=== PATIENT | male | born 1945 | race Caucasian/White ===

== ENCOUNTER 2016-11-04 06:30 | Day surgery (SDC) | payer MEDICARE, OTHER ==
[~2016-11-04 06:30] MED LIST: Sodium Chloride 0.9% 1,000 ML IV SCH
[2016-11-04] MEDS ORDERED: Lactated Ringers 1,000 ML IV SCH (06:45)
[2016-11-04] MEDS ORDERED: Midazolam 1 MG/ML 2 ML SDV ONE (07:24)
[2016-11-04] MEDS ORDERED: fentaNYL 100 MCG/2 ML SDV ONE (07:24)
[2016-11-04] MEDS ORDERED: Propofol 200 MG/20 ML SDV ONE (07:24)
--- NOTE | 2016-11-04 09:34 | OR ---
DATE OF PROCEDURE: 11/04/2016 PREOPERATIVE DIAGNOSIS: Diarrhea. POSTOPERATIVE DIAGNOSIS: Diverticulosis; diarrhea, etiology unknown. PROCEDURE PERFORMED: Colonoscopy to the cecum with random colonic biopsies. ANESTHESIA: IV anesthesia with monitored anesthesia care. INDICATIONS: This 70-year-old white male is referred for a colonoscopy because of diarrhea which is chronic. He thinks his last colonoscopic exam was performed about 8 to 10 years ago. I counseled for a colonoscopy with possible biopsy and/or polypectomy including risks and alternatives, and he gave his informed consent to proceed. DESCRIPTION OF PROCEDURE: The patient was placed in the left lateral decubitus position. IV anesthesia was administered by the Anesthesia Service. Time-out was held. A rectal exam was performed, which was unremarkable. The flexible video Olympus colonoscope was introduced through his anus, up his rectum, and out his colon all way to the cecum. En route, we saw a few scattered left-sided diverticula. Once the cecum was reached, the scope was slowly withdrawn examining the mucosa throughout. No mucosal abnormalities were noted. We did obtain random colonic biopsies throughout the entire colon because of the diarrhea. The scope was retroflexed in the rectum, with the distal rectum appearing unremarkable. The scope was straightened and removed. He tolerated the procedure well. Brian Contreras MD /[id number] [facility]
[2016-11-04 09:42] VITALS: BP 130/79
== END 2016-11-04 10:00 | disposition home or self-care (01) ==
LOC: JP.SDS 06:30
PROVIDERS: ATTEND Surgery
DX: K57.30 Diverticulosis of large intestine without perforation or abscess without bleeding (principal); K52.9 Noninfective gastroenteritis and colitis, unspecified
CPT/HCPCS: 45380; 88305; J2250; J2704; J3010; J7120

== ENCOUNTER 2017-01-17 17:30 | Emergency (ER) | payer MEDICARE, OTHER ==
[2017-01-17 17:45] VITALS: BP 146/92
[2017-01-17] MEDS ORDERED: Bacitracin Oint 1 GM U/D Packet TOP ONE (18:55)
--- NOTE | 2017-01-17 19:07 | EDM.PDOC ---
ED HPI GENERAL MEDICAL PROBLEM - General Chief Complaint: Laceration Stated Complaint: CUT FINGER Time Seen by Provider: 01/17/17 17:45 Source of Information: Reports: Patient History Limitations: Reports: No Limitations - History of Present Illness INITIAL COMMENTS - FREE TEXT/NARRATIVE: pt arrived with a circular laceration on the tip of the 4th finger. he cut this on glass at his home. Onset: Today Duration: Hour(s): Location: Reports: Upper Extremity, Right Associated Symptoms: Reports: No Other Symptoms Right 4-Ring finger Pain Score (Numeric/FACES): 1 - Related Data Allergies Allergy/AdvReac Type Severity Reaction Status Date / Time No Known Allergies Allergy Verified 01/17/17 17:47 Home Meds: Home Meds Glucosamine/D3/Boswellia Yvonne [Glucosamine Complex Tablet] 200 mg PO BID [History] Multivitamin [Multivitamins] 1 tab PO DAILY 10/27/14 [History] Terazosin [Hytrin] 4 mg PO BEDTIME 10/27/14 [History] Latanoprost [Latanoprost] 1 drop EYEBOTH DAILY 10/29/16 [History] Turmeric/Turmeric Root Extract [Turmeric 450-50 mg Capsule] 1 each PO DAILY [History] Timolol [Betimol] 1 drop OP DAILY 01/17/17 [History] Past Medical History HEENT History: Reports: Impaired Vision Genitourinary History: Reports: Other (See Below) Other Genitourinary History: bladder CA 1994 Musculoskeletal History: Reports: Arthritis Oncologic (Cancer) History: Reports: Bladder Other Oncologic History: bladder CA - Infectious Disease History Infectious Disease History: Reports: Chicken Pox - Past Surgical History HEENT Surgical History: Reports: Other (See Below) Other HEENT Surgeries/Procedures: repaired left ear hole with earlobe tissue GI Surgical History: Reports: Hernia, Inguinal Other GI Surgeries/Procedures: 10/28/14 Left hernia pain Male Surgical History: Reports: Other (See Below) Other Male Surgeries/Procedures: ?resected tumor from bladder Social & Family History - Tobacco Use Smoking Status *Q: Never Smoker Second Hand Smoke Exposure: No - Caffeine Use Caffeine Use: Reports: Coffee - Alcohol Use Days Per Week of Alcohol Use: 2 Number of Drinks Per Day: 1 Total Drinks Per Week: 2 - Recreational Drug Use Recreational Drug Use: No ED ROS GENERAL - Review of Systems Review Of Systems: See Below Constitutional: Reports: No Symptoms HEENT: Reports: No Symptoms Respiratory: Reports: No Symptoms Cardiovascular: Reports: No Symptoms Endocrine: Reports: No Symptoms GI/Abdominal: Reports: No Symptoms : Reports: No Symptoms ED EXAM, SKIN/RASH Exam: See Below Text/Narrative:: pt has a circular cut on the tip of the 4th finger. This is 1/2 inch. Exam Limited By: No Limitations General Appearance: Alert, Anxious Ears: Normal TMs Nose: Normal Inspection Throat/Mouth: Normal Inspection Head: Atraumatic Neck: Normal Inspection Extremities: Other (pt has a circular laceration 1/2 inch in length. ) Neurological: Alert, Oriented, Normal Cognition Psychiatric: Normal Affect Course - Vital Signs Last Recorded V/S: Last Vital Signs Temp 36.0 C 01/17/17 17:45 Pulse 76 01/17/17 17:45 Resp 18 01/17/17 17:45 BP 146/92 H 01/17/17 17:45 Pulse Ox 96 01/17/17 17:45 - Orders/Labs/Meds Meds: Medications Discontinued Medications Generic Name Dose Route Start Last Admin Trade Name Freq PRN Reason Stop Dose Admin Bacitracin 1 dose 01/17/17 18:55 Bacitracin Oint 1 Gm TOP 01/17/17 18:56 ONETIME ONE Lidocaine HCl 5 ml 01/17/17 18:54 Xylocaine-Mpf 1% INJECT 01/17/17 18:55 ONETIME ONE - Re-Assessments/Exams Free Text/Narrative Re-Assessment/Exam: 01/17/17 19:14 area was cleansed and infiltrated with lidocaine.. The wound was closed with 6 -0 prolene. It was dressed with bacatracin. Departure - Departure Time of Disposition: 19:08 Disposition: Home, Self-Care 01 Condition: Fair Clinical Impression: Laceration - Discharge Information Referrals: Ashok Cooper MD [Primary Care Provider] - Forms: ED Department Discharge Care Plan Goals: keep dry, no further ointments, keep covered sr in 7-8 days.
== END 2017-01-17 19:34 | disposition home or self-care (01) ==
LOC: JP.ED 17:30
DX: S61.214A Laceration without foreign body of right ring finger without damage to nail, initial encounter (principal); Z79.899 Other long term (current) drug therapy; W25.XXXA Contact with sharp glass, initial encounter; Y92.009 Unspecified place in unspecified non-institutional (private) residence as the place of occurrence of the external cause
CPT/HCPCS: 12001; 99283-25

== ENCOUNTER 2019-03-02 20:34 | Emergency (ER) | payer MEDICARE, OTHER ==
[2019-03-02] MEDS ORDERED: diphenhydrAMINE 50 MG/ML SDV IVPUSH ONE (20:39)
[2019-03-02] MEDS ORDERED: Ketorolac 30 MG/ML SDV IVPUSH ONE (20:39)
[2019-03-02] MEDS ORDERED: Prochlorperazine 10 MG/2 ML SDV IVPUSH ONE (20:39)
[2019-03-02 20:43] VITALS: BP 140/79; PULSE 75
[2019-03-02] MEDS ORDERED: Acetaminophen/oxyCODONE 325-5 MG Tab PO ONE (20:59)
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
== END 2019-03-02 22:10 | disposition home or self-care (01) ==
LOC: JP.ED 20:34
DX: S20.212A Contusion of left front wall of thorax, initial encounter (principal); G30.0 Alzheimer's disease with early onset; F02.80 Dementia in other diseases classified elsewhere, unspecified severity, without behavioral disturbance, psychotic disturbance, mood disturbance, and anxiety; V43.52XA Car driver injured in collision with other type car in traffic accident, initial encounter; Y92.410 Unspecified street and highway as the place of occurrence of the external cause
CPT/HCPCS: 71046; 96374; 99285-25; A9270-GY

== ENCOUNTER 2019-05-19 18:31 | Emergency (ER) | payer MEDICARE, OTHER ==
--- NOTE | 2019-05-19 19:17 | EDM.PDOC ---
ED HPI GENERAL MEDICAL PROBLEM - General Chief Complaint: Gastrointestinal Problem Stated Complaint: WEAK,STOMACH PAINS Time Seen by Provider: 05/19/19 19:17 Source of Information: Reports: Patient History Limitations: Reports: No Limitations - History of Present Illness INITIAL COMMENTS - FREE TEXT/NARRATIVE: 73 years old male patient presented to the ER with a chief complaint of epigastric pain, intermittent has been going on for 6 weeks. Intermittent nausea and vomiting. His hospital and told him he needed to be checked tonight. Denies any fever. Has diarrhea for 6 weeks. Denies any urinary changes. Denies any urinary symptom. Denies any chest pain shortness breath. Nothing he can think of that extirpate his pain or alleviated. Pain, nausea and vomiting currently resolved. - Related Data Allergies Allergy/AdvReac Type Severity Reaction Status Date / Time No Known Allergies Allergy Verified 02/16/18 18:39 Home Meds: Home Meds Multivitamin [Multivitamins] 1 tab PO DAILY 10/27/14 [History] Terazosin [Hytrin] 4 mg PO BEDTIME 10/27/14 [History] Latanoprost 1 drop EYEBOTH DAILY 10/29/16 [History] Turmeric/Turmeric Root Extract [Turmeric 450-50 mg Capsule] 1 each PO DAILY [History] Timolol [Betimol] 1 drop OP DAILY 01/17/17 [History] Past Medical History HEENT History: Reports: Impaired Vision Gastrointestinal History: Reports: GERD, GI Bleed Genitourinary History: Reports: Other (See Below) Other Genitourinary History: bladder CA 1994 Musculoskeletal History: Reports: Arthritis Oncologic (Cancer) History: Reports: Bladder Other Oncologic History: bladder CA - Infectious Disease History Infectious Disease History: Reports: Chicken Pox - Past Surgical History HEENT Surgical History: Reports: Other (See Below) Other HEENT Surgeries/Procedures: repaired left ear hole with earlobe tissue GI Surgical History: Reports: Hernia, Inguinal Other GI Surgeries/Procedures: 10/28/14 Left hernia pain. sheduled for hernia repair 03/23/19 in [facility] Male Surgical History: Reports: Other (See Below) Other Male Surgeries/Procedures: ?resected tumor from bladder Social & Family History - Caffeine Use Caffeine Use: Reports: Coffee ED ROS GENERAL - Review of Systems Review Of Systems: Comprehensive ROS is negative, except as noted in HPI. ED EXAM, GI/ABD - Physical Exam Exam: See Below Exam Limited By: No Limitations General Appearance: Alert, WD/WN, No Apparent Distress Eyes: Bilateral: Normal Appearance, EOMI Nose: Normal Inspection, Normal Mucosa, No Blood Throat/Mouth: Normal Inspection, Normal Lips, Normal Teeth, Normal Gums, Normal Oropharynx, Normal Voice, No Airway Compromise Head: Atraumatic, Normocephalic Neck: Normal Inspection, Supple, Non-Tender, Full Range of Motion Respiratory/Chest: No Respiratory Distress, Lungs Clear, Normal Breath Sounds, No Accessory Muscle Use, Chest Non-Tender Cardiovascular: Normal Peripheral Pulses, Regular Rate, Rhythm, No Edema, No Gallop, No JVD, No Murmur, No Rub GI/Abdominal Exam: Normal Bowel Sounds, Soft, Non-Tender, No Organomegaly, No Distention, No Abnormal Bruit, No Mass, Pelvis Stable Extremities: Normal Inspection, Normal Range of Motion, Non-Tender, Normal Capillary Refill, No Pedal Edema Neurological: Alert, Oriented, CN II-XII Intact, Normal Cognition, Normal Gait, Normal Reflexes, No Motor/Sensory Deficits Skin Exam: Warm, Dry, Intact, Normal Color, No Rash Course - Vital Signs Last Recorded V/S: Last Vital Signs Temp 36.2 C 05/19/19 19:38 Pulse 61 05/19/19 20:43 Resp 16 05/19/19 19:38 BP 149/89 H 05/19/19 20:43 Pulse Ox 96 05/19/19 19:38 - Orders/Labs/Meds Orders: Active Orders 24 hr Category Date Time Status Iopamidol [Isovue-300 (61%)] Med 05/19/19 20:30 Active 100 ml IV . DIRECTED Sodium Chloride 0.9% [Normal Saline] 80 ml Med 05/19/19 20:30 Active IV ASDIRECTED Sodium Chloride 0.9% [Saline Flush] Med 05/19/19 20:30 Active 10 ml FLUSH ASDIRECTED PRN Medication Orders Sodium Chloride (Normal Saline) 80 mls @ 3 mls/sec IV ASDIRECTED KOBY Last Admin: 05/19/19 21:10 Dose: 3 mls/sec Iopamidol (Isovue-300 (61%)) 100 ml IV . DIRECTED KOBY Last Admin: 05/19/19 21:10 Dose: 100 ml Sodium Chloride (Saline Flush) 10 ml FLUSH ASDIRECTED PRN PRN Reason: Keep Vein Open Last Admin: 05/19/19 21:10 Dose: 10 ml Labs: Laboratory Tests 05/19/19 05/19/19 05/19/19 Range/Units 19:26 19:26 19:26 WBC 5.9 (4.5-11.0) K/uL RBC 4.74 (4.30-5.90) M/uL Hgb 14.7 (12.0-15.0) g/dL Hct 44.4 (40.0-54.0) % MCV 94 (80-98) fL MCH 31 (27-31) pg MCHC 33 (32-36) % Plt Count 177 (150-400) K/uL Neut % (Auto) 59 (36-66) % Lymph % (Auto) 30 (24-44) % Coleman % (Auto) 9 H (2-6) % Eos % (Auto) 2 (2-4) % Baso % (Auto) 1 (0-1) % PT 11.0 (9.5-12.0) sec INR 1.02 (0.80-1.20) Sodium 137 L (140-148) mmol/L Potassium 3.9 (3.6-5.2) mmol/L Chloride 101 (100-108) mmol/L Carbon Dioxide 28 (21-32) mmol/L Anion Gap 11.9 (5.0-14.0) mmol/L BUN 20 H (7-18) mg/dL Creatinine 1.1 (0.8-1.3) mg/dL Est Cr Clr Drug Dosing 57.08 mL/min Estimated GFR (MDRD) > 60 (>60) Glucose 101 (74-106) mg/dL Lactic Acid (0.4-2.0) mmol/L Calcium 8.2 L (8.5-10.1) mg/dL Total Bilirubin 0.3 (0.2-1.0) mg/dL AST 21 (15-37) U/L ALT 27 (12-78) U/L Alkaline Phosphatase 119 H (46-116) U/L Total Protein 7.0 (6.4-8.2) g/dL Albumin 3.5 (3.4-5.0) g/dL Globulin 3.5 (2.3-3.5) g/dL Albumin/Globulin Ratio 1.0 L (1.2-2.2) Lipase 120 (73-393) U/L Urine Color (YELLOW) Urine Appearance (CLEAR) Urine pH (5.0-8.0) Ur Specific [place] (1.008-1.030) Urine Protein (NEGATIVE) mg/dL Urine Glucose (UA) (NEGATIVE) mg/dL Urine Ketones (NEGATIVE) mg/dL Urine Occult Blood (NEGATIVE) Urine Nitrite (NEGATIVE) Urine Bilirubin (NEGATIVE) Urine Urobilinogen (0.2-1.0) EU/dL Ur Leukocyte Esterase (NEGATIVE) Urine RBC (0-5) Urine WBC (0-5) Ur Epithelial Cells Amorphous Sediment Urine Bacteria Urine Mucus 05/19/19 05/19/19 Range/Units 19:26 19:50 WBC (4.5-11.0) K/uL RBC (4.30-5.90) M/uL Hgb (12.0-15.0) g/dL Hct (40.0-54.0) % MCV (80-98) fL MCH (27-31) pg MCHC (32-36) % Plt Count (150-400) K/uL Neut % (Auto) (36-66) % Lymph % (Auto) (24-44) % Coleman % (Auto) (2-6) % Eos % (Auto) (2-4) % Baso % (Auto) (0-1) % PT (9.5-12.0) sec INR (0.80-1.20) Sodium (140-148) mmol/L Potassium (3.6-5.2) mmol/L Chloride (100-108) mmol/L Carbon Dioxide (21-32) mmol/L Anion Gap (5.0-14.0) mmol/L BUN (7-18) mg/dL Creatinine (0.8-1.3) mg/dL Est Cr Clr Drug Dosing mL/min Estimated GFR (MDRD) (>60) Glucose (74-106) mg/dL Lactic Acid 1.3 (0.4-2.0) mmol/L Calcium (8.5-10.1) mg/dL Total Bilirubin (0.2-1.0) mg/dL AST (15-37) U/L ALT (12-78) U/L Alkaline Phosphatase (46-116) U/L Total Protein (6.4-8.2) g/dL Albumin (3.4-5.0) g/dL Globulin (2.3-3.5) g/dL Albumin/Globulin Ratio (1.2-2.2) Lipase (73-393) U/L Urine Color Yellow (YELLOW) Urine Appearance Clear (CLEAR) Urine pH 6.0 (5.0-8.0) Ur Specific [place] 1.025 (1.008-1.030) Urine Protein Negative (NEGATIVE) mg/dL Urine Glucose (UA) Negative (NEGATIVE) mg/dL Urine Ketones Negative (NEGATIVE) mg/dL Urine Occult Blood Negative (NEGATIVE) Urine Nitrite Negative (NEGATIVE) Urine Bilirubin Negative (NEGATIVE) Urine Urobilinogen 0.2 (0.2-1.0) EU/dL Ur Leukocyte Esterase Negative (NEGATIVE) Urine RBC Not seen (0-5) Urine WBC 0-5 (0-5) Ur Epithelial Cells Not seen Amorphous Sediment Few Urine Bacteria Not seen Urine Mucus Not seen Meds: Medications Generic Name Dose Route Start Last Admin Trade Name Freq PRN Reason Stop Dose Admin Sodium Chloride 80 mls @ 3 mls/sec 05/19/19 20:30 05/19/19 21:10 Normal Saline IV 3 mls/sec ASDIRECTED KOBY Administration Iopamidol 100 ml 05/19/19 20:30 05/19/19 21:10 Isovue-300 (61%) IV 100 ml . DIRECTED KOBY Administration Sodium Chloride 10 ml 05/19/19 20:30 05/19/19 21:10 Saline Flush FLUSH 10 ml ASDIRECTED PRN Administration Keep Vein Open - Re-Assessments/Exams Free Text/Narrative Re-Assessment/Exam: 05/19/19 19:34 Patient was seen and examined shortly after arrival. Stable. Lab reviewed. No significant acute abnormalities. 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 no change it since 2017. Advised to review this was his primary doctor or general surgeon for further evaluation and management. Again symptom completely resolved. Unclear etiology of his symptom. Possible indigestion. Advised to rest, hydration, close follow-up with PCP. Review CT results. Take a stool sample to the clinic. Come back for any concern or any worsening symptom. Patient and his agrees with the plan. Stable for discharge. 05/19/19 21:49 Departure - Departure Time of Disposition: 21:51 Disposition: Home, Self-Care 01 Condition: Good Clinical Impression: Abdominal pain, Diarrhea - Discharge Information *PRESCRIPTION DRUG MONITORING PROGRAM REVIEWED*: Not Applicable *COPY OF PRESCRIPTION DRUG MONITORING REPORT IN PATIENT YOANDY: Not Applicable Instructions: Abdominal Pain, Adult Referrals: PCP,None [Primary Care Provider] - Forms: ED Department Discharge Additional Instructions: Rest and stay well-hydrated Take stool sample to the clinic for testing Review CT results with your primary doctor for further evaluation and management of left ongoing canal findings Close follow up with PCP within one week Come back for any concern or any worsening symptom Sepsis Event Note - Focused Exam Vital Signs: Vital Signs Temp Pulse Resp BP Pulse Ox 05/19/19 20:43 61 149/89 H 05/19/19 19:38 36.2 C 68 16 142/94 H 96 05/19/19 19:11 36.2 C 68 16 142/94 H 96 Date Exam was Performed: 05/19/19 Time Exam was Performed: 21:49 - My Orders Last 24 Hours: My Active Orders 05/19/19 20:30 Iopamidol [Isovue-300 (61%)] 100 ml IV . DIRECTED Sodium Chloride 0.9% [Normal Saline] 80 ml IV ASDIRECTED Sodium Chloride 0.9% [Saline Flush] 10 ml FLUSH ASDIRECTED PRN - Assessment/Plan Last 24 Hours: My Active Orders 05/19/19 20:30 Iopamidol [Isovue-300 (61%)] 100 ml IV . DIRECTED Sodium Chloride 0.9% [Normal Saline] 80 ml IV ASDIRECTED Sodium Chloride 0.9% [Saline Flush] 10 ml FLUSH ASDIRECTED PRN Plan: Rest and stay well-hydrated Take stool sample to the clinic for testing Review CT results with your primary doctor for further evaluation and management of left ongoing canal findings Close follow up with PCP within one week Come back for any concern or any worsening symptom
[2019-05-19] MEDS ORDERED: Sodium Chloride 0.9% 10 ML Syringe FLUSH PRN (20:30)
[2019-05-19] MEDS ORDERED: Sodium Chloride 0.9% 80 ML IV SCH (20:30)
[2019-05-19] MEDS ORDERED: Iopamidol 612 MG/ML 100 ML Bottle IV SCH (20:30)
[2019-05-19 20:44] VITALS: BP 149/89; PULSE 61
--- NOTE | 2019-05-19 21:45 | CRLCT ---
Indication: Abdominal pain Technique: Contrast enhanced axial CT imaging through the abdomen and pelvis. 100 mL Isovue-300 contrast agent was administered intravenously. Sagittal and coronal reconstructions are provided. Comparison: CT abdomen pelvis with contrast 06/19/2016 Findings: There is no significant abnormality of the liver, gallbladder, spleen, pancreas, adrenal glands, and kidneys. The portal vein is patent. There is normal caliber of the abdominal aorta. There is no abdominal lymphadenopathy. The stomach and duodenum are unremarkable. There are no abnormally dilated small bowel loops. The appendix is noninflamed. There is no colonic wall thickening. No inflammatory changes are demonstrated in the mesentery. A 2.7 oval soft tissue focus is again demonstrated in the proximal left inguinal canal, unchanged since 2017. There is mild prostatomegaly. Degenerative changes are noted in the lumbar spine. The included lung bases are clear. Impression: 1. No acute process demonstrated in the abdomen and pelvis. 2. Stable appearance of a small oval soft tissue focus in the proximal inguinal canal, possibly representing an undescended testis. Please note that all CT scans at this facility use dose modulation, iterative reconstruction, and/or weight-based dosing when appropriate to reduce radiation dose to as low as reasonably achievable. Dictated by Mango Ulloa MD @ May 19 2019 9:43PM Signed by Dr. Mango Ulloa @ May 19 2019 9:43PM
== END 2019-05-19 22:05 | disposition home or self-care (01) ==
LOC: JP.ED 18:31
DX: R10.13 Epigastric pain (principal); R19.7 Diarrhea, unspecified; Z79.899 Other long term (current) drug therapy
CPT/HCPCS: 36415; 74177; 80053; 81001; 83605; 83690; 85025; 85610; 99283; 99284-25; J7050; Q9967

== ENCOUNTER 2019-05-28 14:11 | Emergency (ER) | payer MEDICARE, OTHER ==
[2019-05-28] MEDS ORDERED: Ondansetron 4 MG Tab.DIS PO ONE (14:28)
[2019-05-28] MEDS ORDERED: Lactated Ringers 1,000 ML IV ONE (14:28)
--- NOTE | 2019-05-28 14:41 | EDM.PDOC ---
ED HPI GENERAL MEDICAL PROBLEM - General Chief Complaint: Abdominal Pain Stated Complaint: WEAK VOMITING Time Seen by Provider: 05/28/19 14:25 Source of Information: Reports: Patient, Old Records History Limitations: Reports: No Limitations - History of Present Illness INITIAL COMMENTS - FREE TEXT/NARRATIVE: 73 yo male arrives via EMS from a local restaurant after he developed nausea/ vomiting. No recent diarrhea. No abdominal pain. He says that lately whenever he eats/drinks anything he vomits. He normally gets his care at [facility] and is not able to tell me what they have done or found in regards to this problem that has been ongoing with waxing and waning for a few months due to his mild dementia. No blood in his emesis. Had a hernia repair not too long ago. Was here in the ER 9 days ago for something similar to today's events and a CT scan of his abd/pelvis with IV contrast and labs were normal Within the past year was tx'd with omeprazole for a stomach problem, is not on this currently. Onset: Today (after eating lunch at a local establishment. ) Onset Date: 05/28/19 Duration: Minutes:, Waxing/Waning Location: Reports: Abdomen Quality: Reports: Other (no pain today.) Severity: Moderate Improves with: Reports: None Worsens with: Reports: Other (eating or drinking) Context: Reports: Other (see HPI) Associated Symptoms: Reports: Nausea/Vomiting. Denies: Fever/Chills, Shortness of Breath Treatments FL[employer] CLE[employer]ER: Reports: Other (see below) (none) - Related Data Allergies Allergy/AdvReac Type Severity Reaction Status Date / Time No Known Allergies Allergy Verified 05/28/19 14:17 Home Meds: Home Meds Multivitamin [Multivitamins] 1 tab PO DAILY 10/27/14 [History] Terazosin [Hytrin] 4 mg PO BEDTIME 10/27/14 [History] Latanoprost 1 drop EYEBOTH DAILY 10/29/16 [History] Turmeric/Turmeric Root Extract [Turmeric 450-50 mg Capsule] 1 each PO DAILY [History] Timolol [Betimol] 1 drop OP DAILY 01/17/17 [History] Famotidine [Acid Controller] 20 mg PO BEDTIME #30 tablet 05/28/19 [Rx] Metoclopramide HCl 10 mg PO QID #30 tablet 05/28/19 [Rx] Past Medical History HEENT History: Reports: Impaired Vision Gastrointestinal History: Reports: GERD, GI Bleed Genitourinary History: Reports: Other (See Below) Other Genitourinary History: bladder CA 1994 Musculoskeletal History: Reports: Arthritis Neurological History: Reports: Headaches, Chronic Oncologic (Cancer) History: Reports: Bladder Other Oncologic History: bladder CA - Infectious Disease History Infectious Disease History: Reports: Chicken Pox - Past Surgical History HEENT Surgical History: Reports: Other (See Below) Other HEENT Surgeries/Procedures: repaired left ear hole with earlobe tissue GI Surgical History: Reports: Hernia, Inguinal Other GI Surgeries/Procedures: 10/28/14 Left hernia pain. sheduled for hernia repair 03/23/19 in [facility] Male Surgical History: Reports: Other (See Below) Other Male Surgeries/Procedures: ?resected tumor from bladder Social & Family History - Tobacco Use Smoking Status *Q: Never Smoker - Caffeine Use Caffeine Use: Reports: Coffee ED ROS GENERAL - Review of Systems Review Of Systems: See Below Constitutional: Reports: No Symptoms HEENT: Reports: No Symptoms Respiratory: Reports: No Symptoms Cardiovascular: Reports: No Symptoms Endocrine: Reports: No Symptoms GI/Abdominal: Reports: Nausea, Vomiting. Denies: Abdominal Pain, Anorexia, Black Stool, Bloody Stool, Constipation, Diarrhea, Decreased Appetite, Distension, Flatus, Hematemesis, Hematochezia, Melena : Reports: No Symptoms Musculoskeletal: Reports: No Symptoms Skin: Reports: No Symptoms Neurological: Reports: No Symptoms Psychiatric: Reports: No Symptoms ED EXAM, GI/ABD - Physical Exam Exam: See Below Exam Limited By: No Limitations General Appearance: Alert, WD/WN, No Apparent Distress Eyes: Bilateral: Normal Appearance Ears: Normal External Exam, Normal Canal, Hearing Grossly Normal Nose: Normal Inspection, No Blood Throat/Mouth: Normal Inspection, Normal Lips, Normal Oropharynx, Normal Voice, No Airway Compromise Head: Atraumatic, Normocephalic Neck: Normal Inspection Respiratory/Chest: No Respiratory Distress, Lungs Clear, Normal Breath Sounds, No Accessory Muscle Use Cardiovascular: Regular Rate, Rhythm, No Edema GI/Abdominal Exam: Soft, Non-Tender, No Distention Back Exam: Normal Inspection. No: CVA Tenderness (R), CVA Tenderness (L) Extremities: Normal Inspection, Normal Range of Motion, Non-Tender, No Pedal Edema Neurological: Alert, Oriented, CN II-XII Intact, Normal Cognition, No Motor/ Sensory Deficits Psychiatric: Normal Affect, Normal Mood Skin Exam: Warm, Dry, Intact, Normal Color, No Rash Course - Vital Signs Text/Narrative:: Zofran ODT didn't do much for his nausea, but the nausea is resolved after Reglan 5 mg IV. Last Recorded V/S: Last Vital Signs Temp 36.0 C 05/28/19 14:31 Pulse 70 05/28/19 15:09 Resp 16 05/28/19 14:31 BP 134/91 H 05/28/19 15:09 Pulse Ox 96 05/28/19 15:09 - Orders/Labs/Meds Orders: Active Orders 24 hr Category Date Time Status H. PYLORI BREATH TEST Routine Lab 05/28/19 16:36 Received Labs: Laboratory Tests 05/28/19 05/28/19 Range/Units 14:45 14:45 WBC 6.8 (4.5-11.0) K/uL RBC 5.22 (4.30-5.90) M/uL Hgb 16.0 H (12.0-15.0) g/dL Hct 48.3 (40.0-54.0) % MCV 93 (80-98) fL MCH 31 (27-31) pg MCHC 33 (32-36) % Plt Count 197 (150-400) K/uL Sodium 137 L (140-148) mmol/L Potassium 3.9 (3.6-5.2) mmol/L Chloride 100 (100-108) mmol/L Carbon Dioxide 26 (21-32) mmol/L Anion Gap 14.9 H (5.0-14.0) mmol/L BUN 22 H (7-18) mg/dL Creatinine 1.1 (0.8-1.3) mg/dL Est Cr Clr Drug Dosing 56.14 mL/min Estimated GFR (MDRD) > 60 (>60) Glucose 138 H (74-106) mg/dL Calcium 9.2 (8.5-10.1) mg/dL Meds: Medications Discontinued Medications Generic Name Dose Route Start Last Admin Trade Name Freq PRN Reason Stop Dose Admin Famotidine 20 mg 05/28/19 15:26 05/28/19 15:49 Pepcid IVPUSH 05/28/19 15:27 20 mg ONETIME ONE Administration Lactated Ringer's 1,000 mls @ 1,000 mls/hr 05/28/19 14:28 05/28/19 14:45 Ringers, Lactated IV 05/28/19 15:27 1,000 mls/hr BOLUS ONE Administration Metoclopramide HCl 5 mg 05/28/19 15:11 05/28/19 15:18 Reglan IVPUSH 05/28/19 15:12 5 mg ONETIME ONE Administration Ondansetron HCl 4 mg 05/28/19 14:28 05/28/19 14:45 Zofran Odt PO 05/28/19 14:29 4 mg ONETIME ONE Administration - Radiology Interpretation Free Text/Narrative:: upright abdominal X-ray- Impression: Nonobstructive bowel gas pattern. The pelvis is not fully imaged. Dictated by Eun Alejandro MD @ May 28 2019 3:25PM Departure - Departure Time of Disposition: 15:15 Disposition: Home, Self-Care 01 Condition: Fair Clinical Impression: Nausea and vomiting Qualifiers: Vomiting type: unspecified Vomiting Intractability: non-intractable Qualified Code(s): R11.2 - Nausea with vomiting, unspecified Gastritis Qualifiers: Gastritis type: unspecified gastritis Chronicity: unspecified Gastritis bleeding: without bleeding Qualified Code(s): K29.70 - Gastritis, unspecified, without bleeding - Discharge Information *PRESCRIPTION DRUG MONITORING PROGRAM REVIEWED*: No *COPY OF PRESCRIPTION DRUG MONITORING REPORT IN PATIENT YOANDY: No Prescriptions: Famotidine [Acid Controller] 20 mg PO BEDTIME #30 tablet Metoclopramide HCl 10 mg PO QID #30 tablet Instructions: Nausea and Vomiting, Adult, [id number] Referrals: PCP,None [Primary Care Provider] - Forms: ED Department Discharge Additional Instructions: Use prescriptions given today as needed. Recheck with your provider next Friday to review the results of your H. pylori breath test. Return as needed. Sepsis Event Note - Evaluation Sepsis Screening Result: No Definite Risk - Focused Exam Date Exam was Performed: 05/29/19 Time Exam was Performed: 06:58 - My Orders Last 24 Hours: My Active Orders 05/28/19 16:36 H. PYLORI BREATH TEST Routine - Assessment/Plan Last 24 Hours: My Active Orders 05/28/19 16:36 H. PYLORI BREATH TEST Routine
[2019-05-28 15:10] VITALS: BP 134/91; PULSE 70
[2019-05-28] MEDS ORDERED: Metoclopramide 10 MG/2 ML SDV IVPUSH ONE (15:11)
[2019-05-28] MEDS ORDERED: Famotidine 20 MG/2 ML SDV IVPUSH ONE (15:26)
--- NOTE | 2019-05-28 15:31 | CRLCR ---
Indication: Vomiting, recent hernia repair. Technique: Abdomen 1 view. Comparison: CT abdomen/pelvis 05/19/2019. Findings: Nonobstructive bowel gas pattern. Mild amount of stool in the ascending colon. The pelvis is not fully imaged. No free air. The lung bases are clear. Mild right convex thoracolumbar curve. Impression: Nonobstructive bowel gas pattern. The pelvis is not fully imaged. Dictated by Eun Alejandro MD @ May 28 2019 3:25PM Signed by Dr. Eun Alejandro @ May 28 2019 3:29PM
[2019-06-01 16:08] LABS: H. PYLORI BREATH TEST Negative (Negative)
== END 2019-05-28 17:05 | disposition home or self-care (01) ==
LOC: JP.ED 14:11
DX: K29.70 Gastritis, unspecified, without bleeding (principal); K21.9 Gastro-esophageal reflux disease without esophagitis; Z79.899 Other long term (current) drug therapy; Z85.51 Personal history of malignant neoplasm of bladder
CPT/HCPCS: 36415; 74018; 80048; 83013; 85027; 96361; 96374; 96375; 99283; 99285-25; A9270-GY; J2765; J3490; J7120

== ENCOUNTER 2019-12-06 09:44 | Emergency (ER) | payer MEDICARE, OTHER ==
[2019-12-06 10:09] VITALS: BP 140/92; PULSE 63
--- NOTE | 2019-12-06 10:21 | EDM.PDOC ---
ED HPI GENERAL MEDICAL PROBLEM - General Chief Complaint: Gastrointestinal Problem Stated Complaint: BLACK STOOLS Time Seen by Provider: 12/06/19 10:21 Source of Information: Reports: Patient History Limitations: Reports: No Limitations - History of Present Illness INITIAL COMMENTS - FREE TEXT/NARRATIVE: pt stated he had 3 large black tarry stools within 1/2 hour. He is confused and no one else saw the stool. He was not able to give a stool here. Onset: Today, Sudden Duration: Hour(s): Location: Reports: Other (pt did not admit to any abdomanal pain. After several tries he was not able to leave a stool. ) Associated Symptoms: Reports: No Other Symptoms - Related Data Allergies Allergy/AdvReac Type Severity Reaction Status Date / Time No Known Allergies Allergy Verified 05/28/19 14:17 Home Meds: Home Meds Multivitamin [Multivitamins] 1 tab PO DAILY 10/27/14 [History] Terazosin [Hytrin] 4 mg PO BEDTIME 10/27/14 [History] Latanoprost 1 drop EYEBOTH DAILY 10/29/16 [History] Turmeric/Turmeric Root Extract [Turmeric 450-50 mg Capsule] 1 each PO DAILY 10/29/16 [History] Timolol [Betimol] 1 drop OP DAILY 01/17/17 [History] Famotidine [Acid Controller] 20 mg PO BEDTIME #30 tablet 05/28/19 [Rx] Metoclopramide HCl 10 mg PO QID #30 tablet 05/28/19 [Rx] Cyanocobalamin (Vitamin B-12) [B-12] 1,000 mcg PO DAILY 12/06/19 [History] DULoxetine [Cymbalta] 20 mg PO DAILY 12/06/19 [History] Dicyclomine [Bentyl] 10 mg PO QID 12/06/19 [History] Pantoprazole [ProTONIX] 40 mg PO DAILY 12/06/19 [History] Past Medical History HEENT History: Reports: Impaired Vision Gastrointestinal History: Reports: GERD, GI Bleed Genitourinary History: Reports: Other (See Below) Other Genitourinary History: bladder CA 1994 Musculoskeletal History: Reports: Arthritis Neurological History: Reports: Headaches, Chronic Oncologic (Cancer) History: Reports: Bladder Other Oncologic History: bladder CA - Infectious Disease History Infectious Disease History: Reports: Chicken Pox - Past Surgical History HEENT Surgical History: Reports: Other (See Below) Other HEENT Surgeries/Procedures: repaired left ear hole with earlobe tissue GI Surgical History: Reports: Hernia, Inguinal Other GI Surgeries/Procedures: 10/28/14 Left hernia pain. sheduled for hernia repair 03/23/19 in [facility] Male Surgical History: Reports: Other (See Below) Other Male Surgeries/Procedures: ?resected tumor from bladder Social & Family History - Tobacco Use Smoking Status *Q: Never Smoker - Caffeine Use Caffeine Use: Reports: Coffee - Recreational Drug Use Recreational Drug Use: No ED ROS GENERAL - Review of Systems Review Of Systems: See Below Constitutional: Reports: No Symptoms, Other (pt is having some problems with dementia and does get quite anxious. ) HEENT: Reports: No Symptoms Respiratory: Reports: No Symptoms Cardiovascular: Reports: No Symptoms Endocrine: Reports: No Symptoms GI/Abdominal: Reports: Black Stool, Diarrhea : Reports: No Symptoms Musculoskeletal: Reports: No Symptoms Skin: Reports: No Symptoms Neurological: Reports: Confusion, Pre-Existing Deficit Psychiatric: Reports: Anxiety ED EXAM, GI/ABD - Physical Exam Exam: See Below Text/Narrative:: p stated this am he woke up and within 1/2 hour he had multiple loose black tarry stool. Exam Limited By: No Limitations General Appearance: Alert, No Apparent Distress, Anxious, Other (pupils are equal and reactive to lit. ) Ears: Normal TMs Nose: Normal Inspection Throat/Mouth: Normal Inspection Head: Atraumatic Neck: Normal Inspection Respiratory/Chest: No Respiratory Distress Cardiovascular: Regular Rate, Rhythm GI/Abdominal Exam: Soft, Non-Tender (Male) Exam: Deferred Rectal (Males) Exam: Other (no masses present, There is no stool present. ) Back Exam: Normal Inspection Extremities: Normal Inspection Neurological: Alert, Oriented, Normal Cognition Psychiatric: Anxious Course - Vital Signs Last Recorded V/S: Last Vital Signs Temp 36.2 C 12/06/19 10:08 Pulse 63 12/06/19 10:08 Resp 16 12/06/19 10:08 BP 140/92 H 12/06/19 10:08 Pulse Ox 96 12/06/19 10:08 - Orders/Labs/Meds Orders: Active Orders 24 hr Category Date Time Status UA W/MICROSCOPIC [URIN] Urgent Lab 12/06/19 10:20 Ordered Labs: Laboratory Tests 12/06/19 12/06/19 12/06/19 Range/Units 10:33 10:33 10:33 WBC 4.1 L (4.5-11.0) K/uL RBC 4.75 (4.30-5.90) M/uL Hgb 15.1 H (12.0-15.0) g/dL Hct 45.1 (40.0-54.0) % MCV 95 (80-98) fL MCH 32 H (27-31) pg MCHC 34 (32-36) % Plt Count 169 (150-400) K/uL Neut % (Auto) 59 (36-66) % Lymph % (Auto) 30 (24-44) % [place] % (Auto) 8 H (2-6) % Eos % (Auto) 2 (2-4) % Baso % (Auto) 1 (0-1) % Sodium 139 L (140-148) mmol/L Potassium 4.3 (3.6-5.2) mmol/L Chloride 103 (100-108) mmol/L Carbon Dioxide 28 (21-32) mmol/L Anion Gap 12.3 (5.0-14.0) mmol/L BUN 12 (7-18) mg/dL Creatinine 1.1 (0.8-1.3) mg/dL Est Cr Clr Drug Dosing 56.14 mL/min Estimated GFR (MDRD) > 60 (>60) Glucose 104 (74-106) mg/dL Calcium 8.6 (8.5-10.1) mg/dL Total Bilirubin 0.7 D (0.2-1.0) mg/dL AST 20 (15-37) U/L ALT 27 (12-78) U/L Alkaline Phosphatase 106 (46-116) U/L C-Reactive Protein 0.08 (0.0-0.3) mg/dL Total Protein 7.0 (6.4-8.2) g/dL Albumin 3.6 (3.4-5.0) g/dL Globulin 3.4 (2.3-3.5) g/dL Albumin/Globulin Ratio 1.1 L (1.2-2.2) - Re-Assessments/Exams Free Text/Narrative Re-Assessment/Exam: 12/06/19 12:41 A adequate stool was not obtained so will have pt bring in a speciman, If he goes home and has multiple stools he should rtc. He has a hg of 15. The remainder of his labs are normal. Departure - Departure Time of Disposition: 12:29 Disposition: Home, Self-Care 01 Condition: Fair Clinical Impression: Black stools, Confusion - Discharge Information Instructions: Confusion, Gastrointestinal Bleeding, [id number] Referrals: PCP,None [Primary Care Provider] - Forms: ED Department Discharge Care Plan Goals: pt is to go home and obtain a speciman if possible. He did not have a adequate occult blood done. If the stool is loose will do a clost diff. A cup and hat was sent home with the pt. If pt should start having multiple stools save a speciman and return to the ER. Sepsis Event Note (ED) - Focused Exam Vital Signs: Vital Signs Temp Pulse Resp BP Pulse Ox 12/06/19 10:08 36.2 C 63 16 140/92 H 96 - My Orders Last 24 Hours: My Active Orders 12/06/19 10:20 UA W/MICROSCOPIC [URIN] Urgent - Assessment/Plan Last 24 Hours: My Active Orders 12/06/19 10:20 UA W/MICROSCOPIC [URIN] Urgent
== END 2019-12-06 12:48 | disposition home or self-care (01) ==
LOC: JP.ED 09:44
DX: R41.0 Disorientation, unspecified (principal); K92.1 Melena; K21.9 Gastro-esophageal reflux disease without esophagitis; Z98.890 Other specified postprocedural states; Z79.899 Other long term (current) drug therapy
CPT/HCPCS: 36415; 80053; 82272; 85025; 86140; 99283; 99284